=== PATIENT | male | born 1975 | race Hispanic/Latino ===

== ENCOUNTER 2023-11-01 07:34 | Inpatient (IN) | payer SELFPAY ==
[2023-11-01 08:25] LABS: #Basophils 0.05 10x3/uL (0.0-0.2); %Basophils 0.5 % (0.0-1.0); %Eosinophils 5.2 % (0.0-10.0); %Monocytes 6.6 % (0.0-10.0); %Neutrophils 58.3 % (42.0-75.0); Hematocrit 42.3 % (42.0-52.0); Hemoglobin 13.9 g/dL (14.0-18.0); Mean Corpuscular HGB CONC 32.9 g/dL (32.0-36.0); Mean Corpuscular Hemoglobin 28.2 pg (27.0-31.0); Mean Corpuscular Volume 85.8 fL (78.0-98.0); Mean Platelet Volume 11.6 fL (7.4-10.4); Platelet Count 273 10x3/uL (130-400); RBC Distribution Width 13.8 % (11.5-14.5); Red Blood Cell (RBC) Count 4.93 mill/uL (4.70-6.10)
[2023-11-01] MEDS ORDERED: Ketorolac Tromethamine 30 MG (1 mL) VIAL ONE (08:32)
[2023-11-01] MEDS ORDERED: Nitroglycerin 0.4 MG TAB 1 EACH ONE (08:32)
[2023-11-01 08:42] LABS: Magnesium 1.9 mg/dL (1.6-2.6)
[2023-11-01 08:43] LABS: ALT (SGPT) 27 U/L (8-55); AST (SGOT) 24 U/L (5-34); Albumin 2.3 g/dL (3.5-5.0); Alkaline Phosphatase 172 U/L (40-110); Anion Gap 14 mmol/L (10-20); BUN (Urea Nitrogen) 20 mg/dL (8.9-20.6); Bilirubin, Total 0.4 mg/dL (0.2-1.2); Calc. Creatinine Clearance 0 mL/min (70-130); Calcium 9.1 mg/dL (7.8-10.44); Carbon Dioxide 24 mmol/L (22-29); Chloride 104 mmol/L (98-107); Estimated GFR 62; Globulin 4.8 g/dL (2.4-3.5); Glucose 260 mg/dL (70-105); Magnesium 1.9 mg/dL (1.6-2.6); Potassium 3.6 mmol/L (3.5-5.1); Protein, Total 7.1 g/dL (6.0-8.3); Sodium 138 mmol/L (136-145)
[2023-11-01 08:45] LABS: Troponin I 0.037 ng/mL (< 0.028)
[2023-11-01] MEDS ORDERED: Furosemide 40 MG (4 mL) VIAL ONE ×2 (09:42→14:10)
[2023-11-01] MEDS ORDERED: Iopamidol-370 76% 500 ML MDV (1 ML CHARGE) ONE (10:08)
[2023-11-01] MEDS ORDERED: Dextrose 5% in Water 1,000 ML IV PRN (11:39)
[2023-11-01] MEDS ORDERED: Glucagon 1 MG/ML KIT IM PRN (11:39)
[2023-11-01] MEDS ORDERED: Dextrose 50% Abboject 50 ML SYRINGE SLOW IVP PRN (11:39)
[2023-11-01] MEDS ORDERED: Labetalol HCl 100 MG/20 ML VIAL SLOW IVP PRN (11:45)
[2023-11-01] MEDS ORDERED: Ondansetron ODT 4 MG TAB PO PRN (11:45)
[2023-11-01] MEDS ORDERED: Lisinopril 5 MG TAB ONE (12:06)
[2023-11-01] MEDS: Lisinopril 5 MG TAB PO SCH (12:08)
[2023-11-01] MEDS ORDERED: Aspirin Chewable 81 MG TAB ONE (13:12)
[2023-11-01] MEDS: Aspirin 325 mg Enteric Coated Tablet PO SCH (13:17)
[2023-11-01] MEDS ORDERED: Nitroglycerin 2% Ointment 1 INCH/1 GM Packet ONE (14:10)
[2023-11-01] MEDS: Nitroglycerin 2% Ointment 1 INCH/1 GM Packet TOP SCH (14:18)
[2023-11-01] MEDS: Furosemide 40 MG (4 mL) VIAL SLOW IVP SCH (14:18)
[2023-11-01 15:09] LABS: Troponin I 0.025 ng/mL (< 0.028)
[2023-11-01] MEDS: Insulin Lispro 100 UNIT/ML 10 ML VIAL SC PRN (17:43)
[2023-11-01] MEDS: Carvedilol 3.125 MG TAB PO SCH (17:43)
[2023-11-01] MEDS ORDERED: Carvedilol 3.125 MG TAB PO SCH (21:00)
[2023-11-02 05:39] LABS: Anion Gap 12 mmol/L (10-20); BUN (Urea Nitrogen) 20 mg/dL (8.9-20.6); Calc. Creatinine Clearance 81 mL/min (70-130); Calcium 8.3 mg/dL (7.8-10.44); Carbon Dioxide 24 mmol/L (22-29); Chloride 105 mmol/L (98-107); Estimated GFR 69; Glucose 236 mg/dL (70-105); Potassium 3.5 mmol/L (3.5-5.1); Sodium 137 mmol/L (136-145)
[2023-11-02] MEDS: Aspirin 325 mg Enteric Coated Tablet PO SCH (08:25)
[2023-11-02] MEDS: Lisinopril 5 MG TAB PO SCH (08:25)
[2023-11-02] MEDS: Dexamethasone 4 MG TAB PO SCH (09:17)
[2023-11-02] MEDS: Insulin Glargine 30 UNITS/0.3 ML VIAL SC SCH ×2 (09:17→21:29)
[2023-11-02 13:16] LABS: SARS-CoV-2 E Target Negative; SARS-CoV-2 N2 Target Negative; SARS-CoV-2 NAA Rapid Test Not Detected (NotDetected); SARS-CoV-2 RdRP gene Negative
[2023-11-02 16:07] LABS: Hemoglobin A1c 11.9 % (4.0-6.0)
[2023-11-02 21:07] LABS: Glucose 570 mg/dL (70-105)
[2023-11-02] MEDS: Insulin Lispro 100 UNIT/ML 10 ML VIAL SC PRN (21:29)
[2023-11-02 22:42] VITALS: BMI 29.2
[2023-11-03 04:04] LABS: Anion Gap 13 mmol/L (10-20); BUN (Urea Nitrogen) 26 mg/dL (8.9-20.6); Calc. Creatinine Clearance 70 mL/min (70-130); Calcium 8.4 mg/dL (7.8-10.44); Carbon Dioxide 23 mmol/L (22-29); Chloride 101 mmol/L (98-107); Estimated GFR 59; Glucose 386 mg/dL (70-105); Potassium 3.7 mmol/L (3.5-5.1); Sodium 133 mmol/L (136-145)
[2023-11-03] MEDS: Insulin Lispro 100 UNIT/ML 10 ML VIAL SC PRN (05:27)
[2023-11-03] MEDS ORDERED: Dexamethasone 4 MG TAB PO SCH (08:00)
[2023-11-03] MEDS: cefTRIAXone\\ROCEPHIN 1 GM in Sodium Chloride 0.9% 100 ML IVPB SCH (08:33)
[2023-11-03] MEDS: Insulin Glargine 30 UNITS/0.3 ML VIAL SC SCH (08:34)
[2023-11-03] MEDS: Azithromycin 500 MG in Sodium Chloride 0.9% 250 ML 250 ML IVPB SCH (08:34)
[2023-11-03] MEDS: Furosemide 40 MG TAB PO SCH (14:46)
[2023-11-03 17:52] LABS: Amphetamine Not Detected (NotDetected); Barbiturates Screen Not Detected (NotDetected); Benzodiazepine Screen Not Detected (NotDetected); Cocaine Metabolite Screen Not Detected (NotDetected); Methadone Not Detected (NotDetected); Methamphetamine Not Detected (NotDetected); Opiate Screen Not Detected (NotDetected); Oxycodone Screen Not Detected (NotDetected); Phencyclidine (PCP) Not Detected (NotDetected); THC/Cannabinoid Screen Not Detected (NotDetected); Tricyclic Screen Not Detected (NotDetected)
[2023-11-04 03:53] LABS: #Basophils 0.07 10x3/uL (0.0-0.2); %Basophils 0.6 % (0.0-1.0); %Eosinophils 6.6 % (0.0-10.0); %Lymphocytes 41.8 % (21.0-51.0); %Monocytes 7.1 % (0.0-10.0); %Neutrophils 43.7 % (42.0-75.0); Hemoglobin 12.7 g/dL (14.0-18.0); Mean Corpuscular HGB CONC 32.6 g/dL (32.0-36.0); Mean Corpuscular Hemoglobin 27.1 pg (27.0-31.0); Mean Corpuscular Volume 83.3 fL (78.0-98.0); Mean Platelet Volume 11.4 fL (7.4-10.4); Platelet Count 227 10x3/uL (130-400); RBC Distribution Width 13.8 % (11.5-14.5); Red Blood Cell (RBC) Count 4.68 mill/uL (4.70-6.10)
[2023-11-04 04:09] LABS: Anion Gap 12 mmol/L (10-20); BUN (Urea Nitrogen) 24 mg/dL (8.9-20.6); Calc. Creatinine Clearance 70 mL/min (70-130); Calcium 8.3 mg/dL (7.8-10.44); Carbon Dioxide 26 mmol/L (22-29); Chloride 104 mmol/L (98-107); Estimated GFR 60; Glucose 119 mg/dL (70-105); Potassium 3.2 mmol/L (3.5-5.1); Sodium 139 mmol/L (136-145)
[2023-11-04] MEDS: Potassium Chloride 20 MEQ TAB PO SCH (08:45)
[2023-11-04] MEDS: Magnesium Oxide 400 MG TAB PO SCH (08:45)
[2023-11-04] MEDS: Sodium Chloride 0.9% 250 ML 250 ML IV SCH (12:55)
[2023-11-04] MEDS: Rosuvastatin 20 MG TAB PO SCH (21:12)
[2023-11-05 04:03] LABS: #Basophils 0.08 10x3/uL (0.0-0.2); %Basophils 0.7 % (0.0-1.0); %Eosinophils 12.2 % (0.0-10.0); %Lymphocytes 37.6 % (21.0-51.0); %Monocytes 8.5 % (0.0-10.0); %Neutrophils 40.8 % (42.0-75.0); Hematocrit 36.9 % (42.0-52.0); Hemoglobin 11.9 g/dL (14.0-18.0); Mean Corpuscular HGB CONC 32.2 g/dL (32.0-36.0); Mean Corpuscular Hemoglobin 27.5 pg (27.0-31.0); Mean Corpuscular Volume 85.4 fL (78.0-98.0); Mean Platelet Volume 11.6 fL (7.4-10.4); Platelet Count 221 10x3/uL (130-400); RBC Distribution Width 13.9 % (11.5-14.5); Red Blood Cell (RBC) Count 4.32 mill/uL (4.70-6.10)
[2023-11-05 04:26] LABS: Anion Gap 13 mmol/L (10-20); BUN (Urea Nitrogen) 22 mg/dL (8.9-20.6); Calc. Creatinine Clearance 91 mL/min (70-130); Carbon Dioxide 24 mmol/L (22-29); Chloride 104 mmol/L (98-107); Estimated GFR 83; Glucose 123 mg/dL (70-105); Potassium 3.5 mmol/L (3.5-5.1); Sodium 137 mmol/L (136-145)
[2023-11-05] MEDS: Sacubitril 24MG/Valsartan 26 MG TAB PO SCH (08:49)
[2023-11-05] MEDS: Potassium Chloride 20 MEQ TAB PO SCH (09:06)
[2023-11-05] MEDS: Empagliflozin 10 MG TAB PO SCH (13:13)
[2023-11-05] MEDS ORDERED: Communication Order-Pharmacy FS PRN (17:30)
[2023-11-05] MEDS: Sodium Chloride 0.9% 250 ML 250 ML IV SCH (23:37)
[2023-11-06 04:07] LABS: #Basophils 0.07 10x3/uL (0.0-0.2); %Basophils 0.6 % (0.0-1.0); %Eosinophils 13.2 % (0.0-10.0); %Lymphocytes 36.3 % (21.0-51.0); %Monocytes 8.4 % (0.0-10.0); %Neutrophils 41.3 % (42.0-75.0); Hematocrit 41.1 % (42.0-52.0); Hemoglobin 13.3 g/dL (14.0-18.0); Mean Corpuscular HGB CONC 32.4 g/dL (32.0-36.0); Mean Corpuscular Hemoglobin 27.4 pg (27.0-31.0); Mean Corpuscular Volume 84.6 fL (78.0-98.0); Mean Platelet Volume 11.8 fL (7.4-10.4); Platelet Count 215 10x3/uL (130-400); RBC Distribution Width 13.9 % (11.5-14.5); Red Blood Cell (RBC) Count 4.86 mill/uL (4.70-6.10)
[2023-11-06 05:43] LABS: Anion Gap 11 mmol/L (10-20); BUN (Urea Nitrogen) 26 mg/dL (8.9-20.6); Calc. Creatinine Clearance 75 mL/min (70-130); Calcium 8.4 mg/dL (7.8-10.44); Carbon Dioxide 23 mmol/L (22-29); Chloride 107 mmol/L (98-107); Estimated GFR 66; Glucose 129 mg/dL (70-105); Potassium 4.2 mmol/L (3.5-5.1); Sodium 137 mmol/L (136-145)
[2023-11-06] MEDS ORDERED: Empagliflozin 10 MG TAB PO SCH (09:00)
[2023-11-06] MEDS ORDERED: Nitroglycerin 50 MG/250 ML BOT 0 ML ONE (09:29)
[2023-11-06] MEDS ORDERED: Heparin 10,000 UNITS/ 10 ML VIAL ONE (09:29)
[2023-11-06] MEDS ORDERED: Midazolam HCl 2 mg/2 ml Vial ONE (10:55)
[2023-11-06] MEDS ORDERED: fentaNYL 50 mcg/mL 1 mL Vial ONE (10:55)
[2023-11-06] MEDS ORDERED: Adenosine 6 mg (2 mL) VIAL ONE (10:55)
[2023-11-06] MEDS ORDERED: Atropine Sulfate 1 mg/1 ml Vial ONE (10:56)
[2023-11-06] MEDS ORDERED: Sodium Chloride 0.9% 200 ML IV PRN (11:24)
[2023-11-06] MEDS ORDERED: Nitroglycerin 0.4 MG TAB (25 Tab Bottle) SL PRN (11:24)
[2023-11-06] MEDS ORDERED: Acetaminophen/Codeine 30-300mg Tablet PO PRN (11:24)
[2023-11-06] MEDS: Sodium Chloride 0.9% 250 ML IV SCH (11:30)
[2023-11-06] MEDS ORDERED: Iopamidol 370 76% 100 ML VIAL ONE (12:54)
[2023-11-07 04:07] LABS: #Basophils 0.04 10x3/uL (0.0-0.2); %Basophils 0.5 % (0.0-1.0); %Eosinophils 9.6 % (0.0-10.0); %Lymphocytes 39.3 % (21.0-51.0); %Monocytes 9.5 % (0.0-10.0); %Neutrophils 40.9 % (42.0-75.0); Hematocrit 43.7 % (42.0-52.0); Hemoglobin 13.9 g/dL (14.0-18.0); Mean Corpuscular HGB CONC 31.8 g/dL (32.0-36.0); Mean Corpuscular Hemoglobin 27.2 pg (27.0-31.0); Mean Corpuscular Volume 85.5 fL (78.0-98.0); Mean Platelet Volume 11.9 fL (7.4-10.4); Platelet Count 230 10x3/uL (130-400); RBC Distribution Width 13.8 % (11.5-14.5); Red Blood Cell (RBC) Count 5.11 mill/uL (4.70-6.10)
[2023-11-07 04:22] LABS: Anion Gap 13 mmol/L (10-20); BUN (Urea Nitrogen) 22 mg/dL (8.9-20.6); Calc. Creatinine Clearance 73 mL/min (70-130); Calcium 8.7 mg/dL (7.8-10.44); Carbon Dioxide 23 mmol/L (22-29); Chloride 108 mmol/L (98-107); Estimated GFR 63; Glucose 191 mg/dL (70-105); Sodium 139 mmol/L (136-145)
[2023-11-07] MEDS: Aspirin 81 mg Enteric Coated Tablet PO SCH (09:18)
[2023-11-07] MEDS: Empagliflozin 10 MG TAB PO SCH (09:18)
[2023-11-07] MEDS: Insulin Glargine 30 UNITS/0.3 ML VIAL SC SCH (09:19)
[2023-11-07] MEDS: Sodium Chloride 0.9% 1,000 ML IV SCH (09:21)
[2023-11-08 04:20] LABS: #Basophils 0.05 10x3/uL (0.0-0.2); %Basophils 0.6 % (0.0-1.0); %Eosinophils 9.7 % (0.0-10.0); %Lymphocytes 39.2 % (21.0-51.0); %Monocytes 10.9 % (0.0-10.0); %Neutrophils 39.4 % (42.0-75.0); Hematocrit 43.5 % (42.0-52.0); Hemoglobin 14.1 g/dL (14.0-18.0); Mean Corpuscular HGB CONC 32.4 g/dL (32.0-36.0); Mean Corpuscular Volume 86.3 fL (78.0-98.0); Mean Platelet Volume 11.7 fL (7.4-10.4); Platelet Count 226 10x3/uL (130-400); RBC Distribution Width 13.6 % (11.5-14.5); Red Blood Cell (RBC) Count 5.04 mill/uL (4.70-6.10)
[2023-11-08 04:40] LABS: Anion Gap 13 mmol/L (10-20); BUN (Urea Nitrogen) 22 mg/dL (8.9-20.6); Calc. Creatinine Clearance 79 mL/min (70-130); Calcium 8.7 mg/dL (7.8-10.44); Carbon Dioxide 22 mmol/L (22-29); Chloride 106 mmol/L (98-107); Estimated GFR 70; Glucose 171 mg/dL (70-105); Potassium 4.4 mmol/L (3.5-5.1); Sodium 137 mmol/L (136-145)
[2023-11-09 04:04] LABS: #Basophils 0.05 10x3/uL (0.0-0.2); %Basophils 0.7 % (0.0-1.0); %Eosinophils 7.3 % (0.0-10.0); %Lymphocytes 37.7 % (21.0-51.0); %Monocytes 10.4 % (0.0-10.0); %Neutrophils 43.6 % (42.0-75.0); Hematocrit 43.5 % (42.0-52.0); Hemoglobin 14.1 g/dL (14.0-18.0); Mean Corpuscular HGB CONC 32.4 g/dL (32.0-36.0); Mean Corpuscular Volume 83.2 fL (78.0-98.0); Mean Platelet Volume 11.8 fL (7.4-10.4); Platelet Count 229 10x3/uL (130-400); RBC Distribution Width 13.6 % (11.5-14.5); Red Blood Cell (RBC) Count 5.23 mill/uL (4.70-6.10)
[2023-11-09 04:21] LABS: Anion Gap 13 mmol/L (10-20); BUN (Urea Nitrogen) 23 mg/dL (8.9-20.6); Calc. Creatinine Clearance 79 mL/min (70-130); Carbon Dioxide 19 mmol/L (22-29); Chloride 109 mmol/L (98-107); Estimated GFR 70; Glucose 89 mg/dL (70-105); Potassium 3.9 mmol/L (3.5-5.1); Sodium 137 mmol/L (136-145)
[2023-11-09 09:18] VITALS: TEMP 98.1
[2023-11-09 13:40] VITALS: BMI 27.9
[2023-11-09 15:09] VITALS: BP 104/64
== END 2023-11-09 16:34 | disposition home or self-care (01) | DRG 286 ==
LOC: ERS 07:34 → ERHOLD 10:15 → 2SW 17:12 → OBSVTOIN 11-02 17:11
PROVIDERS: ADMIT Internal Medicine; ATTEND Family Medicine
PROC: 4A023N7 Measurement of Cardiac Sampling and Pressure, Left Heart, Percutaneous Approach (ICD-10-PCS; principal; 2023-11-02)
PROC: B2111ZZ Fluoroscopy of Multiple Coronary Arteries using Low Osmolar Contrast (ICD-10-PCS; 2023-11-02)
DX: I11.0 Hypertensive heart disease with heart failure (principal); I50.23 Acute on chronic systolic (congestive) heart failure; J96.01 Acute respiratory failure with hypoxia; J18.9 Pneumonia, unspecified organism; I42.0 Dilated cardiomyopathy; I25.10 Atherosclerotic heart disease of native coronary artery without angina pectoris; I16.0 Hypertensive urgency; I25.5 Ischemic cardiomyopathy; I08.1 Rheumatic disorders of both mitral and tricuspid valves; E78.00 Pure hypercholesterolemia, unspecified; E11.65 Type 2 diabetes mellitus with hyperglycemia; Z79.4 Long term (current) use of insulin; Z79.84 Long term (current) use of oral hypoglycemic drugs; Z79.899 Other long term (current) drug therapy
CPT/HCPCS: 36415; 36416; 71045; 71275; 80048; 80053; 80061; 80306; 83036; 83605; 83735; 83880; 84484; 85025; 85379; 87040; 87633; 87798; 93005; 93306; 93454; 93798; 96374; 96375; 96376; C1769; C1887; G0378; J0153; J0456; J0461; J0696; J1644; J1815; J1885; J1940; J2250; J3010; J7030; J7050; J8540; Q9967; U0002

== ENCOUNTER 2023-12-05 11:23 | Inpatient (IN) | payer SELFPAY ==
[2023-12-01 12:09] VITALS: BMI 28.8
[2023-12-01 13:40] LABS: #Basophils 0.04 10x3/uL (0.0-0.2); %Basophils 0.5 % (0.0-1.0); %Eosinophils 6.7 % (0.0-10.0); %Lymphocytes 41.9 % (21.0-51.0); %Monocytes 8.8 % (0.0-10.0); %Neutrophils 41.8 % (42.0-75.0); Hematocrit 44.9 % (42.0-52.0); Hemoglobin 14.5 g/dL (14.0-18.0); Mean Corpuscular HGB CONC 32.3 g/dL (32.0-36.0); Mean Corpuscular Hemoglobin 27.2 pg (27.0-31.0); Mean Corpuscular Volume 84.1 fL (78.0-98.0); Mean Platelet Volume 12.2 fL (7.4-10.4); Platelet Count 181 10x3/uL (130-400); RBC Distribution Width 13.9 % (11.5-14.5); Red Blood Cell (RBC) Count 5.34 mill/uL (4.70-6.10)
[2023-12-01 13:52] LABS: Anion Gap 11 mmol/L (10-20); BUN (Urea Nitrogen) 29 mg/dL (8.9-20.6); Calc. Creatinine Clearance 0 mL/min (70-130); Carbon Dioxide 24 mmol/L (22-29); Chloride 105 mmol/L (98-107); Estimated GFR 50; Glucose 150 mg/dL (70-105); Potassium 4.2 mmol/L (3.5-5.1); Sodium 136 mmol/L (136-145)
[2023-12-06] MEDS ORDERED: Ondansetron ODT 4 MG TAB ONE (10:41)
[2023-12-06] MEDS ORDERED: Midazolam HCl 2 mg/2 ml Vial ONE ×3 (10:41→13:33)
[2023-12-06] MEDS ORDERED: Dexamethasone 4 mg/ml Vial ONE (10:58)
[2023-12-06] MEDS ORDERED: Bupivacaine PF 0.5% 30 ML VIAL ONE (10:58)
[2023-12-06] MEDS ORDERED: EPINEPHrine 1 MG/ML VIAL ONE (10:58)
[2023-12-06] MEDS ORDERED: PHENYLEPHRINE-NS 100 MCG/ML 10 ML SYRINGE ONE ×2 (10:58→13:24)
[2023-12-06] MEDS ORDERED: Albumin 5% 500 ML ONE (10:58)
[2023-12-06] MEDS ORDERED: Heparin 10,000 UNITS/1 ML VIAL 30,000 UNITS in Sodium Chloride 0.9% 1,000 ML FS SCH (11:00)
[2023-12-06] MEDS ORDERED: Vancomycin 1 GM VIAL ONE ×2 (11:23→12:12)
[2023-12-06] MEDS ORDERED: Etomidate 40 MG (20 mL) VIAL ONE (11:26)
[2023-12-06] MEDS ORDERED: Rocuronium Bromide 10 MG/ML (10ML VIAL) ONE (11:34)
[2023-12-06] MEDS ORDERED: Lidocaine 1% PF 5 ML VIAL ONE (11:34)
[2023-12-06] MEDS ORDERED: fentaNYL PF 100 MCG/2 ML SYRINGE ONE ×3 (11:34→15:16)
[2023-12-06] MEDS ORDERED: Sodium Chloride 0.9% 100 ML ONE ×2 (11:36→11:46)
[2023-12-06] MEDS ORDERED: MILRINONE LACTATE ONE (11:36)
[2023-12-06] MEDS ORDERED: D5W ONE (11:36)
[2023-12-06] MEDS ORDERED: CEFAZOLIN 2 GM VIAL ONE (11:46)
[2023-12-06] MEDS ORDERED: Thrombin 5000 UNITS/5 ML VIAL ONE (12:12)
[2023-12-06] MEDS ORDERED: Mannitol 12.5 GM/50 ML ONE (12:12)
[2023-12-06] MEDS ORDERED: Lidocaine 2% PF 100 mg/5 ml Syringe ONE (12:12)
[2023-12-06] MEDS ORDERED: Sodium Bicarb 50 mEq/50 ML VIAL ONE (12:12)
[2023-12-06] MEDS ORDERED: Heparin 5,000 UNITS/ML VIAL ONE (12:12)
[2023-12-06] MEDS ORDERED: Potassium Chloride 60 mEq (30 mL) VIAL ONE (12:12)
[2023-12-06] MEDS ORDERED: Calcium Chloride 1 GM/10 ML Abboject SYRINGE ONE (12:12)
[2023-12-06] MEDS ORDERED: Esmolol 100 MG/10 ML VIAL ONE (12:12)
[2023-12-06] MEDS ORDERED: Papaverine 60 MG/2 ML VIAL ONE (12:12)
[2023-12-06] MEDS ORDERED: Protamine Sulfate 250 MG/25 ML VIAL ONE (12:12)
[2023-12-06] MEDS ORDERED: Magnesium 5 GM/10 ML VIAL ONE (12:12)
[2023-12-06] MEDS ORDERED: Cardioplegic Soln 1,000 ML BAG ONE (12:12)
[2023-12-06] MEDS ORDERED: Aminocaproic Acid 5 GM/20 ML VIAL ONE (12:12)
[2023-12-06] MEDS ORDERED: Heparin 30,000 units/30 ml VIAL ONE (12:12)
[2023-12-06] MEDS ORDERED: PROPOFOL 20 ML ONE (12:33)
[2023-12-06] MEDS ORDERED: NOREPINEPHRINE 8 MG/250 ML-D5W 250 ML ONE (12:37)
[2023-12-06] MEDS ORDERED: Milrinone 10 MG/10 ML VIAL ONE (12:43)
[2023-12-06] MEDS ORDERED: fentaNYL 50 mcg/mL 1 mL Vial ONE (14:37)
[2023-12-06] MEDS ORDERED: Nitroglycerin 50 MG/250 ML BOT 250 ML IVPB PRN (15:09)
[2023-12-06] MEDS ORDERED: Bisacodyl 10 MG SUPP PR PRN (15:09)
[2023-12-06] MEDS ORDERED: Potassium Chloride 20 MEQ (100 mL) BAG IVPB PRN (15:09)
[2023-12-06] MEDS ORDERED: Acetaminophen 325 MG TAB PO PRN (15:09)
[2023-12-06] MEDS ORDERED: Mag-Al 1200 mg/1200 mg/30 ML UDCUP PO PRN (15:09)
[2023-12-06] MEDS ORDERED: Promethazine HCl 25 MG/ML VIAL IM PRN (15:09)
[2023-12-06] MEDS ORDERED: Guaifenesin DM 100-10/5 ML UDCUP PO PRN (15:09)
[2023-12-06] MEDS ORDERED: Albumin 5% 12.5 GM (250 mL) BOT IVPB PRN (15:09)
[2023-12-06] MEDS ORDERED: Bisacodyl 5 MG TAB PO PRN (15:09)
[2023-12-06] MEDS ORDERED: fentaNYL 50 mcg/mL 1 mL Vial SLOW IVP PRN (15:09)
[2023-12-06] MEDS ORDERED: Post-Op Insulin Drip Protocol IVPB ONE (15:09)
[2023-12-06] MEDS ORDERED: hydrALAZINE 20 MG/ML VIAL SLOW IVP PRN (15:09)
[2023-12-06] MEDS ORDERED: Hetastarch 6% 500 ML 500 ML IVPB PRN (15:09)
[2023-12-06] MEDS ORDERED: Insulin Reg, Human 100 UNITS in Sodium Chloride 0.9% 100 ML IVPB SCH (15:30)
[2023-12-06] MEDS ORDERED: Dextrose 50% Abboject 50 ML SYRINGE SLOW IVP PRN (15:30)
[2023-12-06] MEDS ORDERED: Dextrose 5% in Water 1,000 ML IV PRN (15:30)
[2023-12-06] MEDS ORDERED: Glucagon 1 MG/ML KIT SC PRN (15:30)
[2023-12-06 15:41] LABS: Actual Bicarbonate (HCO3a) 18.5 mEq/L (22-28); Base Excess (BEa) -6.7 mEq/L (-2.0 to +3.0); CO2 Tension 36.3 mmHg (35.0-45.0); Calcium, Ionized (arterial) 1.16 mmol/L (1.12-1.30); Carboxyhemoglobin (COHb) 0.2 gm% (0.0-3.0); Hematocrit-ABG 39 % (42.0-52.0); Hemoglobin (Hb) 13.1 g/dL (14.0-18.0); O2 Tension (PaO2), arterial 204.9 mmHg (80.0-100.0); Potassium - ABG Lab 4.87 mmol/L (3.70-5.30); Puncture Site Arterial Line; pH, Arterial 7.326 (7.35-7.45)
[2023-12-06 15:42] LABS: ALV-art Gradient 177.525 mmHg (0-20)
[2023-12-06] MEDS: Morphine 2 MG/ML VIAL SLOW IVP PRN (15:50)
[2023-12-06] MEDS: D5 1/2 NS w/20 mEq KCL 1,000 ML IV SCH (15:50)
[2023-12-06] MEDS: INSULIN REGULAR IN 0.9 % NACL 100 UNITS in Premix 1 BAG IVPB SCH (15:50)
[2023-12-06] MEDS: Magnesium 2 GM/50 ML(in water) 2 GM in Premix 1 BAG IVPB SCH (15:50)
[2023-12-06] MEDS: Insulin Regular, Human 100 UNIT/ML 10 ML VIAL SC PRN (16:05)
[2023-12-06 16:15] LABS: #Basophils 0.07 10x3/uL (0.0-0.2); %Basophils 0.4 % (0.0-1.0); %Eosinophils 2.1 % (0.0-10.0); %Lymphocytes 21.8 % (21.0-51.0); %Monocytes 5.1 % (0.0-10.0); %Neutrophils 70.1 % (42.0-75.0); Hematocrit 40.1 % (42.0-52.0); Hemoglobin 12.6 g/dL (14.0-18.0); Mean Corpuscular HGB CONC 31.4 g/dL (32.0-36.0); Mean Corpuscular Hemoglobin 26.9 pg (27.0-31.0); Mean Corpuscular Volume 85.5 fL (78.0-98.0); Platelet Count 140 10x3/uL (130-400); RBC Distribution Width 14.1 % (11.5-14.5); Red Blood Cell (RBC) Count 4.69 mill/uL (4.70-6.10)
[2023-12-06 16:25] LABS: Anion Gap 16 mmol/L (10-20); BUN (Urea Nitrogen) 26 mg/dL (8.9-20.6); Calc. Creatinine Clearance 88 mL/min (70-130); Carbon Dioxide 18 mmol/L (22-29); Chloride 111 mmol/L (98-107); Estimated GFR 78; Glucose 164 mg/dL (70-105); Potassium 5.2 mmol/L (3.5-5.1); Sodium 140 mmol/L (136-145)
[2023-12-06 16:28] LABS: INR-International Normal Ratio 1.3; Prothrombin Time 15.9 sec (12.0-14.7)
[2023-12-06 16:29] LABS: PTT 31.2 sec (22.9-36.1)
[2023-12-06] MEDS: Ketorolac Tromethamine 30 MG (1 mL) VIAL IVP SCH (16:30)
[2023-12-06] MEDS: Insulin Regular, Human 100 UNIT/ML 10 ML VIAL ONE (17:10)
[2023-12-06] MEDS: NOREPINEPHRINE 8 MG/250 ML-D5W 250 ML IVPB PRN (17:35)
[2023-12-06] MEDS: Dextrose 5 %-0.45 % NaCl 1,000 ML IV SCH (19:45)
[2023-12-06] MEDS: fentaNYL 50 mcg/mL 1 mL Vial SLOW IVP PRN (19:59)
[2023-12-06] MEDS: Ondansetron PF 4 MG/2 ML Vial IVP PRN (20:00)
[2023-12-06] MEDS: Famotidine/PF 20 mg/2ml Vial SLOW IVP SCH (20:01)
[2023-12-06] MEDS: CEFAZOLIN 2 GM in Sodium Chloride 0.9% 100 ML IVPB SCH (20:03)
[2023-12-06] MEDS: Atorvastatin Calcium 40 MG TAB PO SCH (20:16)
[2023-12-06 21:20] LABS: Hematocrit 38.9 % (42.0-52.0); Hemoglobin 12.4 g/dL (14.0-18.0)
[2023-12-06 21:27] LABS: Potassium 4.9 mmol/L (3.5-5.1)
[2023-12-07] MEDS: Albumin 5% 12.5 GM (250 mL) BOT IVPB PRN (02:23)
[2023-12-07 04:05] LABS: #Basophils Less than 0.03 10x3/uL (0.0-0.2); #Eosinphils Less than 0.03 10x3/uL (0.0-0.7); %Basophils 0.1 % (0.0-1.0); %Lymphocytes 11.1 % (21.0-51.0); %Monocytes 5.9 % (0.0-10.0); %Neutrophils 82.5 % (42.0-75.0); Hematocrit 34.4 % (42.0-52.0); Hemoglobin 11.2 g/dL (14.0-18.0); Mean Corpuscular HGB CONC 32.6 g/dL (32.0-36.0); Mean Corpuscular Hemoglobin 27.2 pg (27.0-31.0); Mean Corpuscular Volume 83.5 fL (78.0-98.0); Mean Platelet Volume 12.9 fL (7.4-10.4); Platelet Count 146 10x3/uL (130-400); RBC Distribution Width 13.9 % (11.5-14.5); Red Blood Cell (RBC) Count 4.12 mill/uL (4.70-6.10)
[2023-12-07 04:24] LABS: Anion Gap 12 mmol/L (10-20); BUN (Urea Nitrogen) 34 mg/dL (8.9-20.6); Calc. Creatinine Clearance 64 mL/min (70-130); Calcium 8.3 mg/dL (7.8-10.44); Carbon Dioxide 19 mmol/L (22-29); Chloride 112 mmol/L (98-107); Estimated GFR 54; Glucose 118 mg/dL (70-105); Potassium 4.3 mmol/L (3.5-5.1); Sodium 139 mmol/L (136-145)
[2023-12-07] MEDS ORDERED: Glucagon 1 MG/ML KIT IM PRN (06:16)
[2023-12-07] MEDS ORDERED: Dextrose 5% in Water 1,000 ML IV PRN (06:16)
[2023-12-07] MEDS ORDERED: Dextrose 50% Abboject 50 ML SYRINGE SLOW IVP PRN (06:16)
[2023-12-07] MEDS: Pantoprazole DR 40 MG TAB PO SCH (07:45)
[2023-12-07] MEDS: Aspirin 325 MG TAB PO SCH (07:45)
[2023-12-07] MEDS: Magnesium 2 GM/50 ML(in water) 2 GM in Premix 1 BAG IVPB SCH (07:45)
[2023-12-07] MEDS: traMADol HCl 50 MG TAB PO PRN (11:00)
[2023-12-07] MEDS: Insulin Lispro 100 UNIT/ML 10 ML VIAL SC PRN (11:54)
[2023-12-07] MEDS ORDERED: Insulin Glargine 30 UNITS/0.3 ML VIAL SC PRN (15:19)
[2023-12-07] MEDS: Rosuvastatin 20 MG TAB PO SCH (20:04)
[2023-12-08 04:57] LABS: Anion Gap 10 mmol/L (10-20); BUN (Urea Nitrogen) 45 mg/dL (8.9-20.6); Calc. Creatinine Clearance 40 mL/min (70-130); Calcium 7.8 mg/dL (7.8-10.44); Carbon Dioxide 22 mmol/L (22-29); Chloride 110 mmol/L (98-107); Estimated GFR 33; Glucose 200 mg/dL (70-105); Potassium 4.8 mmol/L (3.5-5.1); Sodium 137 mmol/L (136-145)
[2023-12-08] MEDS: traMADol HCl 50 MG TAB PO PRN (06:04)
[2023-12-08 06:10] LABS: Anisocytosis SLIGHT = 6-15 cells HPF (0-5); Eosinophils 2 % (0-10); Large Platelets 3.8 % (0-5); Lymphocytes 30 % (21-51); Macrocytosis SLIGHT = 6-15 cells HPF (0-5); Metamyelocyte 2 % (0-0); Monocytes 5 % (0-10); Neutrophil 62 % (42-75); Ovalocytes SLIGHT = 2-5 cells HPF (0-1); Platelet Adequacy Comment Platelets Decreased; Polychromasia SLIGHT = 2-3 cells HPF (0-2); Smudge Cells 21.9 %
[2023-12-08 06:33] LABS: Hematocrit 28.6 % (42.0-52.0); Hemoglobin 9.1 g/dL (14.0-18.0); Mean Corpuscular HGB CONC 31.8 g/dL (32.0-36.0); Mean Corpuscular Hemoglobin 27.8 pg (27.0-31.0); Mean Corpuscular Volume 87.5 fL (78.0-98.0); Mean Platelet Volume 12.3 fL (7.4-10.4); Platelet Count 99 10x3/uL (130-400); RBC Distribution Width 14.4 % (11.5-14.5); Red Blood Cell (RBC) Count 3.27 mill/uL (4.70-6.10)
[2023-12-08] MEDS: Dapagliflozin Propanediol 10 MG TAB PO SCH (07:35)
[2023-12-08] MEDS ORDERED: Nitroglycerin 0.4 MG TAB (25 Tab Bottle) SL PRN (13:29)
[2023-12-08] MEDS ORDERED: Milk Of Magnesia 30 ML UDCUP PO PRN (13:29)
[2023-12-08] MEDS ORDERED: Mineral Oil ENEMA PR PRN (13:29)
[2023-12-08] MEDS ORDERED: Guaifenesin DM 100-10/5 ML UDCUP PO PRN (13:29)
[2023-12-08] MEDS ORDERED: diphenhydrAMINE 25 MG CAP PO PRN (13:29)
[2023-12-08] MEDS ORDERED: Artificial Tear Ophth Sol 15 ML BOT EA EYE PRN (13:29)
[2023-12-08] MEDS: Metoclopramide HCl 10 MG (2 mL) VIAL IVP SCH (13:43)
[2023-12-08] MEDS: Insulin Glargine 30 UNITS/0.3 ML VIAL SC SCH (21:29)
[2023-12-09 08:09] LABS: Anion Gap 15 mmol/L (10-20); BUN (Urea Nitrogen) 10 mg/dL (8.9-20.6); Calc. Creatinine Clearance 169 mL/min (70-130); Calcium 9.9 mg/dL (7.8-10.44); Carbon Dioxide 23 mmol/L (22-29); Chloride 103 mmol/L (98-107); Estimated GFR 120; Glucose 98 mg/dL (70-105); Potassium 4.2 mmol/L (3.5-5.1); Sodium 137 mmol/L (136-145)
[2023-12-09] MEDS: Carvedilol 3.125 MG TAB PO SCH (16:35)
[2023-12-10 06:31] LABS: Anion Gap 11 mmol/L (10-20); BUN (Urea Nitrogen) 31 mg/dL (8.9-20.6); Calc. Creatinine Clearance 76 mL/min (70-130); Calcium 8.6 mg/dL (7.8-10.44); Carbon Dioxide 23 mmol/L (22-29); Chloride 107 mmol/L (98-107); Estimated GFR 67; Glucose 108 mg/dL (70-105); Potassium 4.4 mmol/L (3.5-5.1); Sodium 137 mmol/L (136-145)
[2023-12-10] MEDS: Sacubitril 24MG/Valsartan 26 MG TAB PO SCH ×2 (10:08→21:38)
[2023-12-11 05:42] LABS: Anion Gap 12 mmol/L (10-20); BUN (Urea Nitrogen) 35 mg/dL (8.9-20.6); Calc. Creatinine Clearance 67 mL/min (70-130); Calcium 9.3 mg/dL (7.8-10.44); Carbon Dioxide 22 mmol/L (22-29); Chloride 107 mmol/L (98-107); Estimated GFR 59; Glucose 118 mg/dL (70-105); Potassium 4.3 mmol/L (3.5-5.1); Sodium 137 mmol/L (136-145)
[2023-12-11 07:39] VITALS: BP 106/58; TEMP 98.6
[2023-12-14 12:57] LABS: Actual Bicarbonate (HCO3a) 20.3 mEq/L (22-28); Analyzer IN Cardio OR; Base Excess (BEa) -3.3 mEq/L (-2.0 to +3.0); CO2 Tension 32.5 mmHg (35.0-45.0); Calcium, Ionized (arterial) 1.16 mmol/L (1.12-1.30); Carboxyhemoglobin (COHb) 0.7 gm% (0.0-3.0); Hematocrit-ABG 41 % (42.0-52.0); Hemoglobin (Hb) 14.1 g/dL (14.0-18.0); O2 Tension (PaO2), arterial 467.3 mmHg (80.0-100.0); Potassium - ABG Lab 4.31 mmol/L (3.70-5.30); pH, Arterial 7.413 (7.35-7.45)
[2023-12-14 12:57] LABS: Actual Bicarbonate (HCO3a) 18.2 mEq/L (22-28); Analyzer IN Cardio OR; CO2 Tension 35.4 mmHg (35.0-45.0); Calcium, Ionized (arterial) 1.15 mmol/L (1.12-1.30); Carboxyhemoglobin (COHb) 0.4 gm% (0.0-3.0); Hematocrit-ABG 39 % (42.0-52.0); Hemoglobin (Hb) 13.4 g/dL (14.0-18.0); O2 Tension (PaO2), arterial 536.6 mmHg (80.0-100.0); Potassium - ABG Lab 4.27 mmol/L (3.70-5.30); pH, Arterial 7.328 (7.35-7.45)
[2023-12-14 12:59] LABS: Actual Bicarbonate (HCO3a) 22.3 mEq/L (22-28); Analyzer IN Cardio OR; Base Excess (BEa) -4.1 mEq/L (-2.0 to +3.0); CO2 Tension 47.4 mmHg (35.0-45.0); Calcium, Ionized (arterial) 0.99 mmol/L (1.12-1.30); Carboxyhemoglobin (COHb) 0.2 gm% (0.0-3.0); Hematocrit-ABG 27 % (42.0-52.0); Hemoglobin (Hb) 9.1 g/dL (14.0-18.0); O2 Tension (PaO2), arterial 504.6 mmHg (80.0-100.0); Potassium - ABG Lab 5.11 mmol/L (3.70-5.30); pH, Arterial 7.291 (7.35-7.45)
[2023-12-14 13:02] LABS: Actual Bicarbonate (HCO3a) 24.1 mEq/L (22-28); Analyzer IN Cardio OR; CO2 Tension 47.6 mmHg (35.0-45.0); Calcium, Ionized (arterial) 1.02 mmol/L (1.12-1.30); Carboxyhemoglobin (COHb) 0.3 gm% (0.0-3.0); Hematocrit-ABG 29 % (42.0-52.0); Hemoglobin (Hb) 9.8 g/dL (14.0-18.0); O2 Tension (PaO2), arterial 515.2 mmHg (80.0-100.0); Potassium - ABG Lab 5.12 mmol/L (3.70-5.30); pH, Arterial 7.323 (7.35-7.45)
[2023-12-14 13:02] LABS: Actual Bicarbonate (HCO3a) 20.3 mEq/L (22-28); Analyzer IN Cardio OR; Base Excess (BEa) -4.1 mEq/L (-2.0 to +3.0); CO2 Tension 34.9 mmHg (35.0-45.0); Calcium, Ionized (arterial) 1.13 mmol/L (1.12-1.30); Carboxyhemoglobin (COHb) 0.2 gm% (0.0-3.0); Hematocrit-ABG 32 % (42.0-52.0); O2 Tension (PaO2), arterial 427.9 mmHg (80.0-100.0); Potassium - ABG Lab 4.74 mmol/L (3.70-5.30); pH, Arterial 7.383 (7.35-7.45)
[2023-12-14 13:03] LABS: Puncture Site Arterial Line
[2023-12-14 13:03] LABS: Puncture Site Arterial Line
[2023-12-14 13:03] LABS: Puncture Site Arterial Line
[2023-12-14 13:04] LABS: Puncture Site Arterial Line
[2023-12-14 13:04] LABS: Puncture Site Arterial Line
== END 2023-12-11 09:13 | disposition home or self-care (01) | DRG 236 ==
LOC: EDSTATUS 12-06 08:55 → SURG A 12-06 09:51 → CCU 12-06 15:28 → 2NO 12-08 12:40
PROVIDERS: ADMIT Thoracic Surgery (Cardiothoracic Vascular Surgery); ATTEND Thoracic Surgery (Cardiothoracic Vascular Surgery)
PROC: 02100Z9 Bypass Coronary Artery, One Artery from Left Internal Mammary, Open Approach (ICD-10-PCS; principal; 2023-12-06)
PROC: 021109W Bypass Coronary Artery, Two Arteries from Aorta with Autologous Venous Tissue, Open Approach (ICD-10-PCS; 2023-12-06)
PROC: 06BQ4ZZ Excision of Left Saphenous Vein, Percutaneous Endoscopic Approach (ICD-10-PCS; 2023-12-06)
PROC: 5A1221Z Performance of Cardiac Output, Continuous (ICD-10-PCS; 2023-12-06)
PROC: 02L70CK Occlusion of Left Atrial Appendage with Extraluminal Device, Open Approach (ICD-10-PCS; 2023-12-06)
PROC: 3E033XZ Introduction of Vasopressor into Peripheral Vein, Percutaneous Approach (ICD-10-PCS; 2023-12-06)
PROC: 30233J1 Transfusion of Nonautologous Serum Albumin into Peripheral Vein, Percutaneous Approach (ICD-10-PCS; 2023-12-06)
PROC: 4A033R1 Measurement of Arterial Saturation, Peripheral, Percutaneous Approach (ICD-10-PCS; 2023-12-06)
DX: I25.10 Atherosclerotic heart disease of native coronary artery without angina pectoris (principal); I50.22 Chronic systolic (congestive) heart failure; E11.9 Type 2 diabetes mellitus without complications; E78.5 Hyperlipidemia, unspecified; I11.0 Hypertensive heart disease with heart failure; Z79.4 Long term (current) use of insulin; Z79.899 Other long term (current) drug therapy; Z98.890 Other specified postprocedural states; I42.0 Dilated cardiomyopathy; Z91.148 Patient's other noncompliance with medication regimen for other reason; Z79.82 Long term (current) use of aspirin
CPT/HCPCS: 36415; 36416; 71045; 80048; 82805; 85025; 85610; 85730; 86850; 86900; 86901; 93005; 93010; 93306; 93798; 94002; A4311; A4648; C1751; C1889; J0171; J0665; J1100; J1642; J1644; J1815; J1885; J2001; J2150; J2250; J2260; J2272; J2405; J2440; J2704; J2720; J2765; J3010; J3370; J3475; J3480; J3490; J7042; P9045; Q0162; S0017